=== PATIENT | male | born 1955 | race Caucasian/White ===

== ENCOUNTER 2016-11-15 09:42 | Outpatient (CLI) | payer BC | END 2016-11-15 09:43 | disposition home or self-care (01) | DX: J98.11 Atelectasis (principal); R05 Cough ==

== ENCOUNTER 2017-02-14 00:34 | Emergency (ER) | payer BC ==
[2017-02-14] MEDS ORDERED: KETOROLAC 60 MG/2 ML VIAL IVP STA (00:56)
[2017-02-14] MEDS ORDERED: HYDROmorphone 1 MG/ML SYRINGE IVP STA ×3 (00:56→03:11)
[2017-02-14] MEDS ORDERED: ONDANSETRON 4 MG/2 ML VIAL IVP STA (00:56)
[2017-02-14] MEDS ORDERED: SODIUM CHLORIDE 0.9% 1,000 ML IV ONE (00:57)
[2017-02-14] MEDS ORDERED: ONDANSETRON 4 MG/2 ML VIAL ONE (01:06)
[2017-02-14] MEDS ORDERED: KETOROLAC 30 MG/ML VIAL ONE (01:06)
[2017-02-14] MEDS ORDERED: HYDROmorphone 1 MG/ML SYRINGE ONE ×3 (01:06→03:12)
[2017-02-14] MEDS ORDERED: TAMSULOSIN 0.4 MG CAPSULE PO STA (02:26)
[2017-02-14] MEDS ORDERED: TAMSULOSIN 0.4 MG CAPSULE ONE (02:29)
[2017-02-14] MEDS ORDERED: ONDANSETRON ODT 4 MG Prepack 2 TL PRN (02:48)
[2017-02-14] MEDS ORDERED: oxyCODONE/ACET 5/325 Prepack 4 PO STA (02:48)
[2017-02-14] MEDS ORDERED: ONDANSETRON ODT 4 MG Prepack 2 TL ONE (02:49)
[2017-02-14] MEDS ORDERED: oxyCODONE/ACET 5/325 Prepack 4 PO ONE (02:49)
[2017-02-14] MEDS ORDERED: oxyCOD/ACETAMIN 5 MG/325 MG TABLET PO STA (03:11)
[2017-02-14] MEDS ORDERED: oxyCOD/ACETAMIN 5 MG/325 MG TABLET PO ONE (03:13)
== END 2017-02-14 03:39 | disposition home or self-care (01) ==
DX: N20.1 Calculus of ureter (principal); R11.0 Nausea; I10 Essential (primary) hypertension; E11.9 Type 2 diabetes mellitus without complications; Z79.84 Long term (current) use of oral hypoglycemic drugs; K21.9 Gastro-esophageal reflux disease without esophagitis
CPT/HCPCS: 36415; 74176; 80053; 81001; 83690; 85025; 96374; 96375; 96376; 99283; 99284; A9270; J1170

== ENCOUNTER 2017-03-08 07:55 | Outpatient (CLI) | payer BC | END 2017-03-08 07:56 | disposition home or self-care (01) | DX: E11.9 Type 2 diabetes mellitus without complications (principal); I10 Essential (primary) hypertension; R05 Cough ==

== ENCOUNTER 2017-03-12 07:42 | Outpatient (CLI) | payer BC ==
[2017-03-12] MEDS ORDERED: IOPAMIDOL-300 100 ML VIAL IVP ONE (08:18)
== END 2017-03-12 07:43 | disposition home or self-care (01) ==
DX: J98.11 Atelectasis (principal); R05 Cough
CPT/HCPCS: 71260; Q9967

== ENCOUNTER 2020-05-16 07:06 | Outpatient (CLI) | payer MEDICARE, OTHER ==
[2020-05-16 15:08] LABS: HGB - HEMOGLOBIN 15.5 g/dL (14.0-18.0); MEAN CORPUSCULAR HEMOGLOBIN 30.3 pg (27.0-31.0); MEAN CORPUSCULAR VOLUME 91.8 fL (80.0-94.0); MEAN PLATELET VOLUME 9.7 fL (7.4-11.4); RED BLOOD COUNT 5.11 10^6/uL (4.70-6.10); RED CELL DISTRIBUTION WIDTH 14.5 % (12.0-15.0); WHITE BLOOD COUNT 6.4 x10^3/uL (4.8-10.8)
[2020-05-16 15:58] LABS: BUN - BLOOD UREA NITROGEN 18 mg/dL (6-20); CALCIUM 8.6 mg/dL (8.5-10.3); CARBON DIOXIDE - CO2 28 mmol/L (21-32); CHLORIDE 101 mmol/L (101-111); CHOL/HDL RATIO 3.9 (<5.0); CHOLESTEROL 102 mg/dL; CREATININE 0.9 mg/dL (0.6-1.2); GLUCOSE 196 mg/dL (70-100); HDL CHOLESTEROL 26 mg/dL; LDL CHOLESTEROL,CALCULATED 53 mg/dL; SODIUM 138 mmol/L (135-145); VLDL CHOLESTEROL 23 mg/dL
[2020-05-16 16:10] LABS: CREATININE,URINE 128.9 mg/dL; MICROALBUM/CREATININE RATIO,UR 37.2 ug/mg (<30.0); MICROALBUMIN,URINE 4.8 mg/dL (0-300.0)
[2020-05-16 16:25] LABS: HB2 TOTAL 16.2 g/dL; HEMOGLOBIN A1C 0.77 g/dL; HEMOGLOBIN A1C % 6.5 % (4.6-6.2)
== END 2020-05-16 07:07 | disposition home or self-care (01) ==
LOC: LAB.S 07:06
PROVIDERS: ATTEND Student in an Organized Health Care Education/Training Program
DX: E11.43 Type 2 diabetes mellitus with diabetic autonomic (poly)neuropathy (principal); Z79.4 Long term (current) use of insulin; I10 Essential (primary) hypertension
CPT/HCPCS: 36415; 80048; 80061; 82043; 82570; 83036; 83721; 85027

== ENCOUNTER 2020-06-20 08:18 | Outpatient (CLI) | payer MEDICARE, OTHER | END 2020-06-20 08:19 | disposition home or self-care (01) | LOC: LAB.S 08:18 | PROVIDERS: ATTEND Student in an Organized Health Care Education/Training Program | DX: E11.43 Type 2 diabetes mellitus with diabetic autonomic (poly)neuropathy (principal); Z12.5 Encounter for screening for malignant neoplasm of prostate | CPT/HCPCS: 36415; G0103; 84153 ==

== ENCOUNTER 2020-09-07 10:24 | Outpatient (CLI) | payer MEDICARE, OTHER ==
[2020-09-07 15:15] LABS: HGB - HEMOGLOBIN 15.3 g/dL (14.0-18.0); MEAN CORPUSCULAR HEMOGLOBIN 29.3 pg (27.0-31.0); MEAN CORPUSCULAR HGB CONC 32.9 g/dL (32.0-36.0); MEAN CORPUSCULAR VOLUME 89.1 fL (80.0-94.0); MEAN PLATELET VOLUME 9.4 fL (7.4-11.4); RED BLOOD COUNT 5.22 10^6/uL (4.70-6.10); RED CELL DISTRIBUTION WIDTH 13.6 % (12.0-15.0); WHITE BLOOD COUNT 8.3 x10^3/uL (4.8-10.8)
[2020-09-07 15:39] LABS: CALCIUM 9.1 mg/dL (8.5-10.3); CREATININE 0.8 mg/dL (0.6-1.2)
[2020-09-07 19:41] LABS: HEMOGLOBIN A1c% 6.9 % (4.27-6.07)
== END 2020-09-07 10:25 | disposition home or self-care (01) ==
LOC: LAB.S 10:24
PROVIDERS: ATTEND Student in an Organized Health Care Education/Training Program
DX: E11.43 Type 2 diabetes mellitus with diabetic autonomic (poly)neuropathy (principal); Z12.5 Encounter for screening for malignant neoplasm of prostate; I10 Essential (primary) hypertension
CPT/HCPCS: 36415; 80048; 83036; 85027; G0103; 84153

== ENCOUNTER 2021-01-04 07:09 | Outpatient (CLI) | payer MEDICARE, OTHER ==
[2021-01-04 19:51] LABS: ESTIMATED AVERAGE GLUCOSE 154 mg/dL (70-100)
== END 2021-01-04 07:10 | disposition home or self-care (01) ==
LOC: LAB.S 07:09
PROVIDERS: ATTEND Student in an Organized Health Care Education/Training Program
DX: E11.43 Type 2 diabetes mellitus with diabetic autonomic (poly)neuropathy (principal)
CPT/HCPCS: 36415; 83036